=== PATIENT | male | born 1960 | race Caucasian/White ===

== ENCOUNTER 2019-04-16 09:29 | Outpatient (CLI) | payer MEDICARE, MEDICAID, SELFPAY ==
--- NOTE | ~2019-04-16 | CT_ITS ---
EXAMINATION: CT lung screening EXAM DATE: 04/16/2019 09:52 INDICATION: COPD. Personal history of nicotine dependence. TECHNIQUE: Spiral low dose CT of the chest without contrast. Axial, coronal and sagittal images were reviewed. The dose-length product (DLP) for this examination was 144.53 mGy-cm. The exposure was t ailored according to patient size (auto mA exposure control), and iterative reconstruction (ASIR) was used as additional dose reduction technique. Comparison is made to prior examination from 03/17/2018. FINDINGS: Some linear right basilar scarring. Tracheobronchial tree is patent. There is no medias tinal, hilar or axillary lymphadenopathy. There are no pleural or pericardial effusions. There is no pneumothorax. Heart normal in size. There are sternotomy wires, and cardiac/coronary surgical changes. Correlate with prior history. There are cholecystectomy clips. There is hepatic steatosis. Adrenal gland hyperplasia bilaterally. There is mild to moderate thoracic spondylosis without osteob lastic or osteolytic lesions identified. Patient has diffuse idiopathic skeletal hyperostosis (DISH). IMPRESSION: Lung-RADS category 1, negative (<1%chance of malignancy); recommend continued LDCT screen ing in 1 year. > Reviewed, dictated and finalized at location B. OR BUDGET ANALYST IMPRESSION: Lung-RADS category 1, negative (<1%chance of malignancy); recommend continued LDCT screening in 1 year. >
== END 2019-04-16 09:30 | disposition home or self-care (01) ==
PROVIDERS: PCP Internal Medicine; Visit Provider Nurse Practitioner Family
DX: Z12.2 Encounter for screening for malignant neoplasm of respiratory organs (principal); Z87.891 Personal history of nicotine dependence
CPT/HCPCS: G0297

== ENCOUNTER 2019-08-04 10:31 | Outpatient (CLI) | payer MEDICARE, MEDICAID, SELFPAY ==
[2019-08-04 11:15] LABS: Basophils Percent Auto 0.5 % (0.2-1.2); Eosinophils Absolute Auto 0.2 K/mm3 (0-0.3); Eosinophils Percent Auto 2.1 % (0-4.4); Hemoglobin 15.2 g/dL (14.0-18.0); Immature Granulocyte Absolute 0.03 K/mm3 (0.00-0.031); Immature Granulocyte Percent A 0.4 % (0-0.5); Lymphocytes Absolute Auto 2.07 K/mm3 (0.9-3.2); Lymphocytes Percent Auto 27.6 % (18.3-44.2); Mean Corpuscular HGB Conc 31.7 g/dl (32-36); Mean Corpuscular Hemoglobin 29.9 pg (26-34); Mean Corpuscular Volume 94.5 fl (80-100); Mean Platelet Volume 11.2 fl (7.4-10.4); Monocytes Absolute Auto 0.6 K/mm3 (0.1-0.6); Monocytes Percent Auto 8.5 % (2.6-8.5); Neutrophils Absolute Auto 4.6 K/mm3 (1.3-6.7); Neutrophils Percent Auto 60.9 % (45.5-73.1); Platelet Count Result 172 k/mm3 (150-375); Red Blood Count 5.08 M/mm3 (4.6-6.20); Red Cell Distribution Width 12.4 % (11.5-14.5); White Blood Count 7.5 K/mm3 (4.5-10.0)
[2019-08-04 11:35] LABS: Alanine Aminotransferase 28 U/L (4-50); Albumin Level 4.2 g/dL (3.5-5.1); Alkaline Phosphatase 110 U/L (38-126); Aspartate Amino Transferase 32 U/L (17-59); Bilirubin,Total 0.5 mg/dL (0.2-1.3); Blood Urea Nitrogen 13 mg/dL (9-20); Calcium 8.8 mg/dL (8.4-10.2); Carbon Dioxide 24 mmol/L (22-30); Chloride 108 mmol/L (98-107); Cholesterol 152 mg/dL (0-200); Estimated Glomerular Filt Rate > 60; Glucose 122 mg/dL (75-110); HDL Direct 46 mg/dL; Potassium 4.2 mmol/L (3.4-5.0); Sodium 139 mmol/L (137-145); Triglycerides 115 mg/dL (<150)
[2019-08-04 11:45] LABS: LDL Cholesterol Direct 86 mg/dL
[2019-08-04 12:04] LABS: Prostate Specific Antigen 0.7 ng/mL (< OR = 4.0)
== END 2019-08-04 10:32 | disposition home or self-care (01) ==
PROVIDERS: PCP Internal Medicine; Visit Provider Internal Medicine
DX: I48.20 Chronic atrial fibrillation, unspecified (principal); E11.9 Type 2 diabetes mellitus without complications; E78.00 Pure hypercholesterolemia, unspecified; Z12.5 Encounter for screening for malignant neoplasm of prostate
CPT/HCPCS: 36415; 80053; 80061; 83036; 84153; 85025; G0103

== ENCOUNTER 2019-12-31 12:11 | Outpatient (CLI) | payer MEDICARE, MEDICAID, SELFPAY ==
[2019-12-31 12:55] LABS: Hemoglobin A1C 6.7 % (<5.7)
== END 2019-12-31 12:12 | disposition home or self-care (01) ==
PROVIDERS: PCP Internal Medicine; Visit Provider Clinical Nurse Specialist
DX: E11.9 Type 2 diabetes mellitus without complications (principal)
CPT/HCPCS: 36415; 83036

== ENCOUNTER 2020-03-20 14:43 | Outpatient (CLI) | payer MEDICARE, MEDICAID, SELFPAY ==
[2020-03-20 16:14] LABS: Hemoglobin A1C 7.6 % (<5.7)
== END 2020-03-20 14:44 | disposition home or self-care (01) ==
LOC: ANHLAB 14:46
PROVIDERS: PCP Internal Medicine; Visit Provider Clinical Nurse Specialist
DX: E11.69 Type 2 diabetes mellitus with other specified complication (principal)
CPT/HCPCS: 36415; 83036

== ENCOUNTER 2020-04-11 13:50 | Outpatient (CLI) | payer MEDICARE, MEDICAID, SELFPAY ==
--- NOTE | ~2020-04-11 | CT_ITS ---
EXAMINATION:CT lung screening DATE: 04/11/2020 14:10 INDICATION: Personal history of tobacco dependence. Smoker who quit in 2019 with 80 pack year history . TECHNIQUE: Computed tomography (CT) of the chest was performed without intravenous contrast. Automate d exposure control and iterative reconstruction technique were employed. The dose-length product (DLP ) was 198.66 mGy-cm. COMPARISON: Chest CT 04/16/2019 FINDINGS: There is mild emphysema. There is mild subpleural scarring in right lower lobe. There is a new 2.2 cm nodule in left upper lobe. No pleural effusion. The heart size is normal. There are oliva ry artery calcifications. There are changes of coronary artery bypass grafting. A newly enlarged left hilar node measures 2.1 x 1.3 cm. There is diffuse hepatic steatosis. There are changes of cholecyst ectomy. Again seen are masses in the adrenal glands measuring up to 1.7 cm on the left measuring low- attenuation, consistent with adenomas. There is mild bilateral gynecomastia. There are old right rib fractures. There are bridging endplate osteophytes at multiple levels in the spine, consistent with d iffuse idiopathic skeletal hyperostosis (DISH). IMPRESSION: 1. Lung-RADS category 4X: Very suspicious. CT-guided biopsy is recommended. Reviewed, dictated and finalized at location A. DER OPERATOR
== END 2020-04-11 13:51 | disposition home or self-care (01) ==
PROVIDERS: PCP Internal Medicine; Visit Provider Nurse Practitioner Family
DX: Z12.2 Encounter for screening for malignant neoplasm of respiratory organs (principal); Z87.891 Personal history of nicotine dependence
CPT/HCPCS: 71271

== ENCOUNTER 2020-04-28 11:52 | Outpatient (CLI) | payer MEDICARE, MEDICAID, SELFPAY ==
--- NOTE | ~2020-04-28 | PE_ITS ---
EXAMINATION: PET skull to mid thigh DATE: 04/28/2020 13:37 INDICATION: Solitary pulmonary nodule. TECHNIQUE: Blood glucose level was 130 mg/dL. 11.608 mCi of 18-fluorodeoxyglucose (18-FDG) was admini stered i.v. Low dose computed tomography (CT) images were acquired from the base of the brain to the proximal thighs for attenuation correction and anatomic localization. Automated exposure control was employed. Dose-length product (DLP) was 1091 mGy-cm. Positron emission tomography (PET) images were a cquired in the same distribution. COMPARISON: Chest CT 04/11/2020 FINDINGS: Head/neck: There is increased activity in the oropharynx without CT correlate, likely physiologic. Th ere are no pathologically enlarged lymph nodes. There is a mucous retention cyst in left maxillary si nus. There is extensive dental disease. Chest: In the left upper lobe, there is a 2.2 cm nodule with maximum SUV of 5.4. There is a 1.4 x 2.1 cm left hilar node with increased activity. There is mild atelectasis and scarring in the inferior l ungs. No pleural effusion. The heart size is normal. There are coronary artery calcifications. There are changes of coronary bypass grafting. No pericardial effusion. Abdomen/pelvis/proximal thighs: There is diffuse hepatic steatosis. There are changes of cholecystect lita. The spleen and pancreas are normal. There are masses in the adrenal glands measuring up to 1.8 c m on the left without increased activity, consistent with adenomas. The kidneys are normal. There are no dilated loops of bowel. There are no pathologically enlarged lymph nodes. There is no free intrap eritoneal fluid. There is no osseous malignancy. IMPRESSION: 1. 2.2 cm left upper lobe pulmonary nodule with increased activity, consistent with primary bronchoge naye carcinoma. CT-guided biopsy is recommended. 2. Enlarged left hilar lymph node with increased activity, consistent with metastatic disease. Reviewed, dictated and finalized at location A. ECTION CLERK IMPRESSION: 1. 2.2 cm left upper lobe pulmonary nodule with increased activity, consistent with primary bronchogenic carcinoma. CT-guided biopsy is recommended. 2. Enlarged left hilar lymph node with increased activity, consistent with meta static disease.
[2020-04-28 12:15] LABS: Glucose Point of Care 130 (65-105)
== END 2020-04-28 11:53 | disposition home or self-care (01) ==
LOC: ANHIMG 11:58
PROVIDERS: PCP Internal Medicine; Visit Provider Nurse Practitioner Family
DX: R91.1 Solitary pulmonary nodule (principal); R59.0 Localized enlarged lymph nodes; E11.9 Type 2 diabetes mellitus without complications
CPT/HCPCS: 78815; 82948; A9552

== ENCOUNTER → 2020-05-13 02:38 | Outpatient (CLI) | payer MEDICARE, MEDICAID, SELFPAY ==
[2020-05-13 20:23] LABS: SARS-CoV-2 RNA PCR Negative
== END ==
PROVIDERS: PCP Internal Medicine; Visit Provider Nurse Practitioner Family
DX: Z01.812 Encounter for preprocedural laboratory examination (principal); Z20.822 Contact with and (suspected) exposure to COVID-19
CPT/HCPCS: C9803; U0003; U0005

== ENCOUNTER 2020-05-16 09:02 | Outpatient (CLI) | payer MEDICARE, MEDICAID, SELFPAY ==
[2020-05-03 14:59] VITALS: BMI 30.7
[2020-05-16] VITALS (9 sets, daily range): BP systolic 111–165; BP diastolic 69–100; PULSE 68–78; RESP 16–18; O2SAT 94–100
--- NOTE | ~2020-05-16 | XR_ITS ---
EXAMINATION: XR chest 1V DATE: 05/16/2020 11:11 INDICATION: Status post left lung biopsy TECHNIQUE: frontal view of the chest was obtained. COMPARISON: Chest CT dated 04/11/2020 FINDINGS: Nodular opacity in the left midlung zone corresponding to the biopsied nodule of concern. Elevation o f the lateral right hemidiaphragm and chronic scarring with blunting at the right costophrenic angle. No other airspace opacities, pulmonary edema, pleural effusion or pneumothorax. The cardiomediastina l silhouette is normal. Median sternotomy wires and mediastinal surgical clips are seen, likely from prior coronary artery bypass grafting. IMPRESSION: 1. No evident pneumothorax or pleural effusion post cutaneous biopsy of a left upper lobe nodule whic h is concerning for malignancy. Reviewed, dictated and finalized at location A. IMPRESSION: 1. No evident pneumothorax or pleural effusion post cutaneous biopsy of a left upper lobe nodule which is concerning for malignancy.
--- NOTE | ~2020-05-16 | XR_ITS ---
EXAMINATION: XR chest 1V portable DATE: 05/16/2020 14:15 INDICATION: Status post percutaneous biopsy of a left upper lobe nodule. TECHNIQUE: frontal view of the chest was obtained. COMPARISON: Chest radiograph dated 05/16/2020 at 12:09 PM FINDINGS: Nodular opacity in the left midlung zone. Chronic pleural parenchymal scarring at the right costophre naye angle with elevation of the lateral right hemidiaphragm. Previously seen small left apical pneumo thorax is no longer visualized. No pleural effusion. The cardiomediastinal silhouette is normal. Medi an sternotomy wires and mediastinal surgical clips are seen, likely from prior coronary artery bypass grafting. IMPRESSION: 1. Prior tiny left apical pneumothorax no longer visualized. 2. Left upper lobe nodule concerning for primary bronchogenic carcinoma. Reviewed, dictated and finalized at location A.
--- NOTE | ~2020-05-16 | XR_ITS ---
EXAMINATION: XR chest 1V portable DATE: 05/16/2020 12:14 INDICATION: Status post left lung biopsy. TECHNIQUE: frontal view of the chest was obtained. COMPARISON: Chest radiograph and CT dated 05/16/2020 FINDINGS: There is a very small left apical pneumothorax which was present on the CT images following the biops y but was indiscernible on the intervening radiographs. Unchanged nodular opacity in the left midlung zone. Mild elevation of the lateral right hemidiaphragm with poor parenchymal scarring at the right costophrenic angle. No pulmonary edema, pleural effusion or right pneumothorax. The cardiomediastinal silhouette is normal. Median sternotomy wires and mediastinal surgical clips are seen, likely from p rior coronary artery bypass grafting. IMPRESSION: 1. Very small left apical pneumothorax post percutaneous biopsy of a left upper lobe nodule which is concerning for malignancy. Reviewed, dictated and finalized at location A.
--- NOTE | ~2020-05-16 | CT_ITS ---
EXAMINATION: CT biopsy lung w/imaging DATE: 05/16/2020 11:18 INDICATION: Left upper lobe nodule TECHNIQUE: The procedure including the risks and benefits was discussed with the patient. Risks discu ssed included infection, approximately 1/20 risk of symptomatic hemorrhage beyond mild hemoptysis, ap proximately 1/3 risk of pneumothorax, and approximately 1/10 risk of pneumothorax severe enough to wa rrant chest tube placement. The patient understood the risks and agreed to proceed. The patient was p laced supine. The skin overlying the pectoral region was prepped and draped in sterile fashion. Ane sthetic was administered with 1% lidocaine subcutaneously. A 19 gauge outer needle was advanced unde r CT guidance to the lesion of interest. A 20 gauge core biopsy needle was then used to obtain 4 core biopsy specimens. The needle was removed and the entry site was cleaned and dressed. There were no immediate complications. The dose-length product was 139.53 mGy-cm. FINDINGS: CT images demonstrate the outer needle tip adjacent to 3.2 x 1.1 cm nodule in the anterior segment of the left upper lobe. Very small anterior left pneumothorax. IMPRESSION: 1. Successful CT-guided biopsy of a 3.2 x 1.1 cm left upper lobe nodule. Reviewed, dictated and finalized at location A.
[2020-05-16 09:30] LABS: Mean Platelet Volume 11.3 fl (7.4-10.4); Platelet Count Result 183 k/mm3 (150-375)
[2020-05-16 09:45] LABS: INR 0.9; Prothrombin Time 12.5 Seconds (11.1-14.7)
--- NOTE | 2020-05-16 11:28 | SUR.PHASEII ---
DR. EPPERSON CALLED; LEFT MESSAGE RE: PT'S LEFT UPPER CHEST PUNCTURE PAIN 09/26.
[2020-05-16 11:37] LABS: Glucose Point of Care 141 (65-105)
[2020-05-16] MEDS: ACETAMINOPHEN 325 MG TABLET 650 MG PO (11:47)
--- NOTE | 2020-05-16 12:08 | SUR.PHASEII ---
PORTABLE XRAY DONE.
--- NOTE | 2020-05-16 14:41 | SUR.PHASEII ---
DR. EPPERSON HERE TALKING TO PT.
== END 2020-05-16 14:55 | disposition home or self-care (01) ==
PROVIDERS: Radiology Diagnostic Radiology; PCP Internal Medicine; Visit Provider Nurse Practitioner Family
DX: R91.1 Solitary pulmonary nodule (principal); Z51.81 Encounter for therapeutic drug level monitoring; Z79.899 Other long term (current) drug therapy
CPT/HCPCS: 32408; 36415; 71045; 82948; 85049; 85610; 88305; 88342; A9270

== ENCOUNTER 2020-05-25 08:05 | Outpatient (CLI) | payer MEDICARE, MEDICAID, SELFPAY ==
--- NOTE | 2020-05-25 14:17 | WPDSIXMINUTE ---
Six Minute Walk This is a 6 minutes walk test. The test was performed and interpreted in accordance with the 2014 ERS/ATS task force guidelines. Findings: The patient's resting room air oxygen saturation measured by pulse oximetry was 93% and her heart rate was 69 bpm. Patient ambulated for 274 meters and oxygen saturation remained 92 to 96%. Heart rate at the end of the study was 86 bpm. There are no prior studies for comparison. Six Minute Walk Procedure Procedure Performed Pulmonary Stress Test (6 min walk)
== END 2020-05-25 08:06 | disposition home or self-care (01) ==
PROVIDERS: PCP Internal Medicine; Visit Provider Nurse Practitioner Family
DX: R06.02 Shortness of breath (principal)
CPT/HCPCS: 94618

== ENCOUNTER 2020-05-25 16:12 | Outpatient (CLI) | payer MEDICARE, MEDICAID, SELFPAY ==
[2020-05-25 16:39] LABS: Basophils Absolute Auto 0.1 K/mm3 (0.0-0.1); Basophils Percent Auto 0.9 % (0.2-1.2); Eosinophils Absolute Auto 0.1 K/mm3 (0-0.3); Eosinophils Percent Auto 1.8 % (0-4.4); Hematocrit 49.3 % (42.0-52.0); Hemoglobin 15.9 g/dL (14.0-18.0); Immature Granulocyte Absolute 0.06 K/mm3 (0.00-0.031); Immature Granulocyte Percent A 0.8 % (0-0.5); Lymphocytes Absolute Auto 2.16 K/mm3 (0.9-3.2); Lymphocytes Percent Auto 27.9 % (18.3-44.2); Mean Corpuscular HGB Conc 32.3 g/dl (32-36); Mean Corpuscular Hemoglobin 30.1 pg (26-34); Mean Corpuscular Volume 93.2 fl (80-100); Mean Platelet Volume 11.6 fl (7.4-10.4); Monocytes Absolute Auto 0.7 K/mm3 (0.1-0.6); Monocytes Percent Auto 8.9 % (2.6-8.5); Neutrophils Absolute Auto 4.6 K/mm3 (1.3-6.7); Neutrophils Percent Auto 59.7 % (45.5-73.1); Platelet Count Result 201 k/mm3 (150-375); Red Blood Count 5.29 M/mm3 (4.6-6.20); Red Cell Distribution Width 12.4 % (11.5-14.5); White Blood Count 7.7 K/mm3 (4.5-10.0)
[2020-05-25 16:57] LABS: Potassium 4.3 mmol/L (3.4-5.0)
[2020-05-25 17:00] LABS: Alanine Aminotransferase 88 U/L (4-50); Albumin Level 4.6 g/dL (3.5-5.1); Alkaline Phosphatase 148 U/L (38-126); Anion Gap 7 mmol/L (8-16); Aspartate Amino Transferase 99 U/L (17-59); Bilirubin,Total 0.2 mg/dL (0.2-1.3); Blood Urea Nitrogen 19 mg/dL (9-20); Calcium 9.5 mg/dL (8.4-10.2); Carbon Dioxide 31 mmol/L (22-30); Chloride 102 mmol/L (98-107); Estimated Glomerular Filt Rate > 60; Glucose 279 mg/dL (75-110); Sodium 140 mmol/L (137-145)
== END 2020-05-25 16:13 | disposition home or self-care (01) ==
PROVIDERS: PCP Internal Medicine; Visit Provider Internal Medicine Hematology & Oncology
DX: C34.90 Malignant neoplasm of unspecified part of unspecified bronchus or lung (principal)
CPT/HCPCS: 36415; 80053; 85025; 94618

== ENCOUNTER → 2020-05-29 02:50 | Outpatient (CLI) | payer MEDICARE, MEDICAID, SELFPAY ==
[2020-05-29 19:42] LABS: SARS-CoV-2 RNA PCR Negative
== END ==
PROVIDERS: PCP Internal Medicine; Visit Provider Surgery
DX: Z01.812 Encounter for preprocedural laboratory examination (principal); Z20.822 Contact with and (suspected) exposure to COVID-19
CPT/HCPCS: C9803; U0003; U0005

== ENCOUNTER 2020-06-01 00:48 | Day surgery (SDC) | payer MEDICARE, MEDICAID, SELFPAY ==
[2020-05-26 15:28] VITALS: BMI 30.7
--- NOTE | ~2020-06-01 | XR_ITS ---
EXAMINATION: XR chest port-a-cath/central INDICATION: Port-A-Cath insertion TECHNIQUE: Portable AP chest is obtained at six 0224 hours COMPARISON: 05/16/2020 FINDINGS: A right subclavian Port-A-Cath ends with its tip at the proximal superior vena cava. There is no pneumothorax. Left perihilar opacity is consistent with known lung cancer. The lungs are free o f acute opacities. There is no pleural effusion. The heart size is normal. Median sternotomy wires an d mediastinal surgical clips are seen, likely from prior coronary artery bypass grafting. IMPRESSION: 1. Right subclavian Port-A-Cath ending in the proximal superior vena cava. No pneumothorax. 2. Right perihilar nodule, consistent with known lung cancer. Reviewed, dictated and finalized at location B. IMPRESSION: 1. Right subclavian Port-A-Cath ending in the proximal superior vena cava. No p neumothorax. 2. Right perihilar nodule, consistent with known lung cancer.
--- NOTE | ~2020-06-01 | XR_ITS ---
EXAMINATION: XR fl guide central line place INDICATION: Port-A-Cath insertion TECHNIQUE: Two intraoperative fluoroscopic images are submitted for review. Total fluoroscopic time w as 15.8 seconds. COMPARISON: None available FINDINGS: Fluoroscopic images demonstrate a right subclavian Port-A-Cath ending with its tip in the p roximal superior vena cava. Median sternotomy wires and mediastinal surgical clips are seen, likely f rom prior coronary artery bypass grafting. IMPRESSION: 1. Right subclavian Port-A-Cath with its tip in the proximal superior vena cava. Please refer to proc edure note for full details. Reviewed, dictated and finalized at location B. IMPRESSION: 1. Right subclavian Port-A-Cath with its tip in the proximal superior vena cava . Please refer to procedure note for full details.
[2020-06-01 12:29] VITALS: BP 128/89; PULSE 88; RESP 16; TEMP 36.3; O2SAT 98
--- NOTE | 2020-06-01 13:14 | SUR.PREOP ---
dr patel stated no need for ptt draw with inr 0.9.
[2020-06-01] MEDS: LACTATED RINGERS 1,000 ML 30 ML IV CONT (13:47)
[2020-06-01] MEDS: KETOROLAC 15 MG/ML VIAL (*BKC) IV PUSH (13:49)
[2020-06-01 13:56] LABS: Glucose Point of Care 97 (65-105)
--- NOTE | 2020-06-01 14:18 | P.PNAN_ITS ---
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 Patient Data Age: 60 Gender: M Height: 5 ft 11 in Weight: 97.75 kg Last Vital Signs Temp 36.3 C L 06/01/20 12:29 Pulse 88 06/01/20 12:29 Resp 16 06/01/20 12:29 BP 128/89 06/01/20 12:29 Pulse Ox 98 06/01/20 12:29 Allergies Allergy/AdvReac Type Severity Reaction Status Date / Time ezetimibe Allergy Mild Arm pain Verified 06/01/20 13:06 lovastatin Allergy Mild Arm pain Verified 06/01/20 13:06 metformin Allergy Mild Arm pain Verified 06/01/20 13:06 simvastatin Allergy Mild Arm Pain Verified 06/01/20 13:06 Home Medications Medication Instructions Recorded Confirmed Type albuterol sulfate 2.5 mg INHALATION PRN ml 02/02/19 06/01/20 History blood sugar diagnostic #10 each 02/02/19 05/31/20 History furosemide 40 mg tablet 40 mg PO DAILY tablet 02/02/19 06/01/20 History latanoprost 0.005 % eye drops 1 drop EACH EYE QPM 02/02/19 06/01/20 History metoprolol tartrate 25 mg tablet 12.5 mg PO DAILY tablet 02/02/19 06/01/20 History potassium chloride 20 mEq 40 meq PO DAILY 02/02/19 06/01/20 History tablet,extended release aspirin 325 mg tablet 81 mg PO DAILY 04/09/19 06/01/20 History glimepiride 4 mg tablet 4 mg PO DAILY #90 tablet 09/23/19 06/01/20 Rx cetirizine 10 mg tablet 10 mg PO HS 09/28/19 06/01/20 History melatonin 10 mg capsule 10 mg PO HS cap 09/28/19 06/01/20 History bupropion HCl 150 mg tablet,12 hr 150 mg PO BID #180 tablet 01/04/20 06/01/20 Rx sustained-release Embrace PRO Glucose meter #1 ea NS 01/18/20 05/31/20 Rx sitagliptin 100 mg tablet 100 mg PO DAILY #90 tablet 03/13/20 06/01/20 Rx rosuvastatin 5 mg tablet 10 mg PO HS tablet 03/30/20 06/01/20 History famotidine 20 mg tablet 20 mg PO BID #60 tablet 04/13/20 06/01/20 Rx fluticasone propionate 50 2 spray NASAL DAILY #19.8 ml 04/20/20 06/01/20 Rx mcg/actuation nasal spray,suspension brimonidine 1 drp EACH EYE BID 05/26/20 06/01/20 History budesonide-formoterol [Symbicort] 2 puff INHALATION BID 05/26/20 06/01/20 History albuterol sulfate [Ventolin HFA] 2 puff INHALATION PRN PRN 06/01/20 06/01/20 History Laboratory Tests 06/01/20 13:53 POC Capillary Glucose 97 mg/dl mg/dl (65-105) Patient hx anesthesia problems: none Family hx anesthesia problems: none PMFSH Past Medical History Medical History CAD (coronary artery disease) Chicken pox Chronic pain COPD (chronic obstructive pulmonary disease) COPD exacerbation Emphysema lung GERD (gastroesophageal reflux disease) Glaucoma Hyperlipidemia Hypertension Migraine Nicotine dependence, other tobacco product, uncomplicated Obesity Osteoarthritis Pneumonia Tobacco abuse Type 2 diabetes mellitus Upper respiratory tract infection Surgical History Surgical History H/O heart artery stent
--- NOTE | 2020-06-01 14:19 | PM.IMHP ---
H&P: HPI History of Present Illness Date/Time: 06/01/20 14:19 Pt is a 60 y/o M c multiple med issues including CAD s/p CABG presenting c recently dx'd left sided lung cancer. Pt is going to undergo chemoradiation. Pt presents for VAD placement. Pt denies any known previous central venous catheterization. Chief Complaint: L lung cancer Review of Systems Review of Systems: All systems reviewed & are unremarkable except as noted in HPI and below PMFSH Past Medical History Medical History CAD (coronary artery disease) Chicken pox Chronic pain COPD (chronic obstructive pulmonary disease) COPD exacerbation Emphysema lung GERD (gastroesophageal reflux disease) Glaucoma Hyperlipidemia Hypertension Migraine Nicotine dependence, other tobacco product, uncomplicated Obesity Osteoarthritis Pneumonia Tobacco abuse Type 2 diabetes mellitus Upper respiratory tract infection Surgical History Surgical History H/O heart artery stent 12/2012 History of open heart surgery 4 bypass heart surgery 10/26/2018 Family History Family History Mother Family history of cardiovascular disease, Onset Age: 71 Sibling Carcinoma of colon H/O heart bypass surgery Father Family history of lung cancer Social History Social History Smoking packs per day: 1.5 Smoking cigarettes per day: 30.0 Years smoked: 45 Smoking pack-years: 67.50 Smoking status: Former smoker Tobacco type: cigarettes Second hand tobacco smoke exposure: No Smoking end date: 04/18/19 Alcohol intake: never Substance use: never Substance use type: does not use Spiritual care concerns: No Meds Home Medications and Allergies Home Medications Medication Instructions Recorded Confirmed Type albuterol sulfate 2.5 mg INHALATION PRN ml 02/02/19 06/01/20 History blood sugar diagnostic #10 each 02/02/19 05/31/20 History furosemide 40 mg tablet 40 mg PO DAILY tablet 02/02/19 06/01/20 History latanoprost 0.005 % eye drops 1 drop EACH EYE QPM 02/02/19 06/01/20 History metoprolol tartrate 25 mg tablet 12.5 mg PO DAILY tablet 02/02/19 06/01/20 History potassium chloride 20 mEq 40 meq PO DAILY 02/02/19 06/01/20 History tablet,extended release aspirin 325 mg tablet 81 mg PO DAILY 04/09/19 06/01/20 History glimepiride 4 mg tablet 4 mg PO DAILY #90 tablet 09/23/19 06/01/20 Rx cetirizine 10 mg tablet 10 mg PO HS 09/28/19 06/01/20 History melatonin 10 mg capsule 10 mg PO HS cap 09/28/19 06/01/20 History bupropion HCl 150 mg tablet,12 hr 150 mg PO BID #180 tablet 01/04/20 06/01/20 Rx sustained-release Embrace PRO Glucose meter #1 ea NS 01/18/20 05/31/20 Rx sitagliptin 100 mg tablet 100 mg PO DAILY #90 tablet 03/13/20 06/01/20 Rx rosuvastatin 5 mg tablet 10 mg PO HS tablet 03/30/20 06/01/20 History famotidine 20 mg tablet 20 mg PO BID #60 tablet 04/13/20 06/01/20 Rx fluticasone propionate 50 2 spray NASAL DAILY #19.8 ml 04/20/20 06/01/20 Rx mcg/actuation nasal spray,suspension brimonidine 1 drp EACH EYE BID 05/26/20 06/01/20 History budesonide-formoterol [Symbicort] 2 puff INHALATION BID 05/26/20 06/01/20 History albuterol sulfate [Ventolin HFA] 2 puff INHALATION PRN PRN 06/01/20 06/01/20 History Allergies Allergy/AdvReac Type Severity Reaction Status Date / Time ezetimibe Allergy Mild Arm pain Verified 06/01/20 13:06 lovastatin Allergy Mild Arm pain Verified 06/01/20 13:06 metformin Allergy Mild Arm pain Verified 06/01/20 13:06 simvastatin Allergy Mild Arm Pain Verified 06/01/20 13:06 Vital Signs Vital Signs - 24 hr 06/01/20 12:29 Temperature 36.3 C L Pulse Rate 88 Respiratory Rate 16 Blood Pressure 128/89 Pulse Oximetry 98 Exam Const: General: cooperative, no acute distress and ill appearin
--- NOTE | 2020-06-01 14:23 | WPDHPUPDATE1 ---
History and Physical Update Update Date/Time: 06/01/20 14:23 History and Physical has been reviewed, including an updated exam of the patient. There are NO changes in the patient's condition. Risks, benefits, and alternatives have been discussed and questions answered. Patient agrees to proceed with procedure.
--- NOTE | 2020-06-01 14:54 | SUR.PREOP ---
pt informed of delay in procedure when arrived.
[2020-06-01] MEDS: ceFAZolin 2 GM/D5W 50 ML 2 GM/50 ML BAG IVPB (15:30)
[2020-06-01] MEDS: HEPARIN SODIUM 5,000 UNITS/ML VIAL 5000 UNITS IRRIGATION (15:46)
[2020-06-01] MEDS: BUPIVACAINE/EPINEPHRINE 0.5% 30 ML VIAL 10 ML INFILTRATE (15:46)
[2020-06-01 16:15] VITALS: BP 135/82; PULSE 81; RESP 16; O2SAT 97
--- NOTE | 2020-06-01 16:16 | P.OP_ITS ---
Procedure Note - Detailed Date of procedure: 06/01/20 Pre-op diagnosis: small cell lung CA Post-op diagnosis: same Procedure performed: placement of right subclavian venous access device under fluroscopic guidance Description of procedure: Patient was brought into the operating room and placed in the supine position. After adequate induction of mac anesthesia, the patient was prepped and draped in normal sterile fashion. Time-out was then done to verify the patient's identity, as well as the procedure being performed. I began by making a small incision in the right chest, I then gained access into the right subclavian vein with an 18 gauge needle. I then placed the guidewire into the vein and confirmed placement via fluoroscopic guidance. I then locally anesthetized the area in the right chest. I then enlarged the incision around the guidewire including making a subcutaneous pocket inferiorly to allow placement of the port itself. I then placed a dilating sheath over the guidewire into the right subclavian vein via sterile Seldinger technique. This was once again done and confirmed via fluoroscopic guidance. I then removed the dilator and the guidewire, now just leaving the sheath in the vein. I then fed the previously flushed catheter into the right subclavian vein under fluoroscopic guidance. At approximately 16 cm, the catheter was noted to be near the atrial caval junction. I then peeled away the sheath, now just leaving the catheter in the vein. I then was able to easily draw and flush from the catheter. The catheter was cut to fit and attached to the port itself. The port was placed into the previously made subcutaneous pocket and sutured in with 0 Ethibond suture. Final fluoroscopic view showed the termination of the catheter at the atrial caval junction with a nice smooth curvature back to the port itself. I was able to gain access to the port with a Allen needle and was able to easily draw and flush from the port. I then flushed 4 cc of a final heparin flush into the port. The incision was closed with 3 0 Vicryl suture in the subcutaneous tissue and the skin was closed with 4 O Monocryl subcuticular suture. Dermabond was then placed on wound. The patient tolerated the proced ure well and will be sent to the recovery room in stable condition. Anesthesia: MAC and local Surgeon: Ana Morrison MD Estimated blood loss (mL): 25 Drains: No Packing: No Pathology: none sent Complications: No immediate complications Condition: stable Disposition: PACU Findings: placement of R SCV VAD via 1st stick
[2020-06-01 16:45] VITALS: BP 142/83; PULSE 73; RESP 16; O2SAT 99
[2020-06-01 17:15] VITALS: BP 148/84; PULSE 77; RESP 16
== END 2020-06-01 17:30 | disposition home or self-care (01) ==
PROVIDERS: PCP Internal Medicine; Visit Provider Surgery
PROC: (CPT 36561; principal; 2020-06-01 14:30)
DX: C34.12 Malignant neoplasm of upper lobe, left bronchus or lung (principal); I25.10 Atherosclerotic heart disease of native coronary artery without angina pectoris; J44.9 Chronic obstructive pulmonary disease, unspecified; K21.9 Gastro-esophageal reflux disease without esophagitis; I10 Essential (primary) hypertension; H40.9 Unspecified glaucoma; E11.9 Type 2 diabetes mellitus without complications; M19.90 Unspecified osteoarthritis, unspecified site; Z95.1 Presence of aortocoronary bypass graft; Z95.5 Presence of coronary angioplasty implant and graft; Z87.891 Personal history of nicotine dependence; Z79.51 Long term (current) use of inhaled steroids; Z79.82 Long term (current) use of aspirin; Z79.84 Long term (current) use of oral hypoglycemic drugs
CPT/HCPCS: 36561; 70553; 77001; 82948; A9577; C1788; C9803; J0690; J1644; J1885; J2250; J2704; J3010; J7030; J7120; U0003; U0005

== ENCOUNTER 2020-06-01 06:33 | Outpatient (CLI) | payer MEDICARE, MEDICAID, SELFPAY ==
--- NOTE | ~2020-06-01 | MR_ITS ---
EXAMINATION: MR brain/brain stem wo/w con DATE: 06/01/2020 07:56 INDICATION: Small cell lung cancer. TECHNIQUE: Magnetic resonance imaging (MRI) of the brain and brainstem was performed without and with 20 mL MultiHance intravenous contrast. Sequences included sagittal and axial T1-weighted FSE, axial diffusion-weighted FS EPI, axial T2*-weighted GRE, axial T2-weighted FLAIR Propeller, and axial T2-we ighted Propeller. Postcontrast sequences included axial, sagittal, and coronal T1-weighted FSE. Appar ent diffusion coefficient (ADC) maps were created. COMPARISON: None. FINDINGS: There are scattered areas of nonspecific increased T2-weighted signal intensity in the cere bral white matter. There is a developmental venous anomaly in left parietal lobe. There is no intracr anial hemorrhage, acute infarction, or abnormal intracranial mass lesion. The ventricles are normal i n size. There is a mucous retention cyst in left maxillary sinus. The orbits are normal. The mastoid air cells are normal. IMPRESSION: 1. No evidence of metastatic disease. 2. Mild nonspecific cerebral white matter disease, which likely represents chronic small vessel ische ezio disease. Reviewed, dictated and finalized at location A. IMPRESSION: 1. No evidence of metastatic disease. 2. Mild nonspecific cerebral white matter disease, which likely represents melter operator naye small vessel ischemic disease.
== END 2020-06-01 06:34 | disposition home or self-care (01) ==
PROVIDERS: PCP Internal Medicine; Visit Provider Internal Medicine Hematology & Oncology
DX: C34.90 Malignant neoplasm of unspecified part of unspecified bronchus or lung (principal); R93.0 Abnormal findings on diagnostic imaging of skull and head, not elsewhere classified
CPT/HCPCS: 70553; A9577

== ENCOUNTER 2020-06-22 16:12 | Outpatient (CLI) | payer MEDICARE, MEDICAID, SELFPAY ==
[2020-06-22 16:50] LABS: Potassium 4.5 mmol/L (3.4-5.0)
[2020-06-22 16:58] LABS: Anion Gap 5 mmol/L (8-16); Blood Urea Nitrogen 23 mg/dL (9-20); Calcium 9.5 mg/dL (8.4-10.2); Carbon Dioxide 32 mmol/L (22-30); Chloride 99 mmol/L (98-107); Cholesterol 174 mg/dL (0-200); Estimated Glomerular Filt Rate > 60; Glucose 245 mg/dL (75-110); HDL Direct 55 mg/dL; Sodium 136 mmol/L (137-145); Triglycerides 442 mg/dL (<150)
[2020-06-22 17:01] LABS: LDL Cholesterol Direct 84 mg/dL
[2020-06-22 18:15] LABS: Hemoglobin A1C 8.9 % (<5.7)
== END 2020-06-22 16:13 | disposition home or self-care (01) ==
LOC: ANHLAB 16:15
PROVIDERS: PCP Internal Medicine; Visit Provider Clinical Nurse Specialist
DX: E78.5 Hyperlipidemia, unspecified (principal); E11.69 Type 2 diabetes mellitus with other specified complication
CPT/HCPCS: 36415; 80048; 80061; 83036

== ENCOUNTER 2020-09-04 09:59 | Outpatient (CLI) | payer MEDICARE, MEDICAID, SELFPAY ==
--- NOTE | ~2020-09-04 | CT_ITS ---
EXAMINATION: CT diagnostic chest w con DATE: 09/04/2020 10:30 INDICATION: Malignant neoplasm of left upper lobe TECHNIQUE: Computed tomography (CT) of the chest was performed with 75 cc Omnipaque 350 intravenous c ontrast. Automated exposure control and iterative reconstruction technique were employed. Exam dose: 986.74 mGy-cm total exam DLP. COMPARISON: 06/01/2020 portable AP chest 05/16/2020 CT guided percutaneous needle biopsy of the left lung FINDINGS: No pulmonary mass lesion is currently evident. No pulmonary infiltrate or consolidation. Th ere is discoid scarring in the posterolateral right lower lung. Normal heart size. No thoracic aortic aneurysm or dissection. No pericardial or pleural effusion. No hilar or mediastinal mass lesion or lymphadenopathy. Posterior old right eighth and ninth rib fracture deformities. Status post cholecystectomy. Hepatic steatosis. Bilateral adrenal hypertrophy. Diffuse idiopathic skeletal hyperostosis of the thoracic spine. IMPRESSION: No suspicious lung mass or pulmonary infiltrate or consolidation No hilar or mediastinal mass lesion or lymphadenopathy Reviewed, dictated and finalized at [facility]. Reviewed, dictated and finalized at location A.
== END 2020-09-04 10:00 | disposition home or self-care (01) ==
LOC: ANHIMG 10:02
PROVIDERS: PCP Internal Medicine; Visit Provider Radiology Radiation Oncology
DX: C34.12 Malignant neoplasm of upper lobe, left bronchus or lung (principal)
CPT/HCPCS: 71260; Q9967

== ENCOUNTER 2020-09-23 17:41 | Emergency (ER) | payer MEDICARE, MEDICAID, SELFPAY ==
--- NOTE | ~2020-09-23 | XR_ITS ---
EXAMINATION: XR hip LT min 2V DATE: 09/23/2020 18:08 INDICATION: Left hip pain. Fall. TECHNIQUE: 3 views of left hip were obtained. COMPARISON: None. FINDINGS: Bone alignment is normal. No fracture. There is mild left hip osteoarthritis. IMPRESSION: 1. Mild left hip osteoarthritis. Reviewed, dictated and finalized at location A.
[2020-09-23 17:53] VITALS: BP 130/80; PULSE 95; RESP 18; TEMP 36.7; O2SAT 99
--- NOTE | 2020-09-23 18:36 | ED.LOWEXIN ---
HPI - Extremity Injury (Lower) General Chief Complaint: Extremity Injury, Lower Stated Complaint: Leg Pain Related Data Home Medications Medication Instructions Recorded Confirmed albuterol sulfate 2.5 mg INHALATION PRN ml 02/02/19 09/13/20 blood sugar diagnostic #10 each 02/02/19 09/13/20 furosemide 40 mg tablet 40 mg PO DAILY tablet 02/02/19 09/13/20 metoprolol tartrate 25 mg tablet 12.5 mg PO DAILY tablet 02/02/19 09/13/20 potassium chloride 20 mEq 40 meq PO DAILY 02/02/19 09/13/20 tablet,extended release cetirizine 10 mg tablet 10 mg PO HS 09/28/19 09/13/20 melatonin 10 mg capsule 10 mg PO HS cap 09/28/19 09/13/20 rosuvastatin 5 mg tablet 10 mg PO HS tablet 03/30/20 09/13/20 Allergies Allergy/AdvReac Type Severity Reaction Status Date / Time ezetimibe Allergy Mild Arm pain Verified 09/23/20 17:58 lovastatin Allergy Mild Arm pain Verified 09/23/20 17:58 metformin Allergy Mild Arm pain Verified 09/23/20 17:58 simvastatin Allergy Mild Arm Pain Verified 09/23/20 17:58 [facility] Past Medical History Medical History CAD (coronary artery disease) Chicken pox Chronic pain COPD (chronic obstructive pulmonary disease) COPD exacerbation Emphysema lung GERD (gastroesophageal reflux disease) Glaucoma Hyperlipidemia Hypertension Migraine Nicotine dependence, other tobacco product, uncomplicated Obesity Osteoarthritis Pneumonia Tobacco abuse Type 2 diabetes mellitus Upper respiratory tract infection Surgical History Surgical History H/O heart artery stent 12/2012 History of open heart surgery 4 bypass heart surgery 10/26/2018 Family History Family History Mother Family history of cardiovascular disease, Onset Age: 71 Sibling Carcinoma of colon H/O heart bypass surgery Father Family history of lung cancer Social History Social History Smoking packs per day: 1.5 Smoking cigarettes per day: 30.0 Years smoked: 45 Smoking pack-years: 67.50 Smoking status: Former smoker Tobacco type: cigarettes Second hand tobacco smoke exposure: No Smoking end date: 06/14/19 Alcohol intake: never Substance use: never Substance use type: does not use Gender identity (if verbalized by the patient): Male Spiritual care concerns: No Course Vital Signs Vital signs: Vital Signs Temperature 98.0 F 09/23/20 17:53 Pulse Rate 95 09/23/20 17:53 Respiratory Rate 18 09/23/20 17:53 Blood Pressure 130/80 09/23/20 17:53 Pulse Oximetry 99 09/23/20 17:53 Temperature 98.0 F 09/23/20 17:53 Pulse Rate 95 09/23/20 17:53 Respiratory Rate 18 09/23/20 17:53 Blood Pressure 130/80 09/23/20 17:53 Pulse Oximetry 99 09/23/20 17:53 Discharge Plan Discharge Clinical Impression: Injury of hip, left Qualifiers: Encounter type: initial encounter Qualified Code(s): S79.912A - Unspecified injury of left hip, initial encounter Patient Disposition: Home, Self-Care Condition: Stable Instructions: Contusion in Adults (ED) Additional Instructions: Your x-ray is negative for fracture today. Rest. Take Tylenol or ibuprofen for pain. Apply ice or heat. Get up from a sitting position slowly. Follow-up with your PCP with any concerns. Your blood pressure was elevated above 120/80 today at Urgent Care. This puts you above the threshold for follow up. Please schedule a followup visit with your personal physician as soon as possible, for further evaluation and treatment. Even blood pressure exceeding 120/80 may indicate pre-hypertension. Patient Language: Portuguese Prescriptions: No Action hydrocodone-acetaminophen 7.5-325 mg/15 mL Solution 10 - 15 ml PO Q6H PRN (Reason: Pain) Qty: 300 RF: 0 albuterol sulfate 2.5 mg /3 mL (0.083
== END 2020-09-23 18:40 | disposition home or self-care (01) ==
PROVIDERS: Emergency Provider Nurse Practitioner; PCP Internal Medicine
DX: S79.912A Unspecified injury of left hip, initial encounter (principal); W19.XXXA Unspecified fall, initial encounter; Z87.891 Personal history of nicotine dependence; I25.10 Atherosclerotic heart disease of native coronary artery without angina pectoris; J44.9 Chronic obstructive pulmonary disease, unspecified; K21.9 Gastro-esophageal reflux disease without esophagitis; H40.9 Unspecified glaucoma; E78.5 Hyperlipidemia, unspecified; I10 Essential (primary) hypertension; M19.90 Unspecified osteoarthritis, unspecified site; E11.9 Type 2 diabetes mellitus without complications; Z95.5 Presence of coronary angioplasty implant and graft
CPT/HCPCS: 73502; 99213; G0463

== ENCOUNTER 2020-10-03 10:21 | Outpatient (CLI) | payer MEDICARE, MEDICAID, SELFPAY ==
[2020-10-03 11:24] LABS: Anion Gap 8 mmol/L (8-16); Blood Urea Nitrogen 19 mg/dL (9-20); Calcium 9.4 mg/dL (8.4-10.2); Carbon Dioxide 29 mmol/L (22-30); Chloride 99 mmol/L (98-107); Estimated Glomerular Filt Rate > 60; Glucose 203 mg/dL (65-110); Potassium 4.9 mmol/L (3.4-5.0); Sodium 136 mmol/L (137-145)
[2020-10-03 13:31] LABS: Hemoglobin A1C 7.3 % (<5.7)
== END 2020-10-03 10:22 | disposition home or self-care (01) ==
LOC: ANHLAB 10:23
PROVIDERS: PCP Internal Medicine; Visit Provider Clinical Nurse Specialist
DX: E11.69 Type 2 diabetes mellitus with other specified complication (principal)
CPT/HCPCS: 36415; 80048; 83036

== ENCOUNTER 2020-11-22 08:56 | Outpatient (CLI) | payer MEDICARE, MEDICAID, SELFPAY ==
--- NOTE | ~2020-11-22 | MR_ITS ---
EXAMINATION: MR brain/brain stem wo/w con DATE: 11/22/2020 10:25 INDICATION: Ataxia. Lung cancer. TECHNIQUE: Magnetic resonance imaging (MRI) of the brain and brainstem was performed without and with 20 mL MultiHance intravenous contrast. Sequences included sagittal and axial T1-weighted FSE, axial diffusion-weighted FS EPI, axial T2*-weighted GRE, axial T2-weighted FLAIR Propeller, and axial T2-we ighted Propeller. Postcontrast sequences included axial, sagittal, and coronal T1-weighted FSE. Appar ent diffusion coefficient (ADC) maps were created. COMPARISON: Brain MRI 06/01/2020 FINDINGS: There are scattered areas of nonspecific increased T2-weighted signal intensity in the cere bral white matter. There is no intracranial hemorrhage, acute infarction, or abnormal intracranial ma ss lesion. The ventricles are normal in size. There is a mucous retention cyst in left maxillary sinu s. The orbits are normal. The mastoid air cells are normal. IMPRESSION: 1. No evidence of metastatic disease. 2. Stable mild nonspecific cerebral white matter disease, which likely represents chronic small vesse l ischemic disease. Reviewed, dictated and finalized at location A. IMPRESSION: 1. No evidence of metastatic disease. 2. Stable mild nonspecific cerebral white matter disease, which likely represen ts chronic small vessel ischemic disease.
[2020-11-22 10:08] LABS: Estimated Glomerular Filt Rate > 60
== END 2020-11-22 08:57 | disposition home or self-care (01) ==
PROVIDERS: PCP Internal Medicine; Visit Provider Radiology Radiation Oncology
DX: C34.90 Malignant neoplasm of unspecified part of unspecified bronchus or lung (principal); R90.82 White matter disease, unspecified
CPT/HCPCS: 70553; 96523; A9577

== ENCOUNTER 2021-01-04 08:52 | Outpatient (CLI) | payer MEDICARE, MEDICAID, SELFPAY ==
[2021-01-04 09:19] LABS: Cholesterol 156 mg/dL (0-200); HDL Direct 45 mg/dL; Triglycerides 202 mg/dL (<150)
[2021-01-04 09:25] LABS: Hemoglobin A1C 7.9 % (<5.7)
[2021-01-04 09:30] LABS: LDL Cholesterol Direct 87 mg/dL
== END 2021-01-04 08:53 | disposition home or self-care (01) ==
LOC: ANHLAB 08:56
PROVIDERS: PCP Internal Medicine; Visit Provider Clinical Nurse Specialist
DX: E11.69 Type 2 diabetes mellitus with other specified complication (principal); I10 Essential (primary) hypertension
CPT/HCPCS: 36415; 80061; 83036

== ENCOUNTER 2021-03-09 12:31 | Observation (INO) | payer MEDICARE, MEDICAID, SELFPAY ==
--- NOTE | ~2021-03-09 | CT_ITS ---
EXAMINATION: CT chest abdomen pelvis w con EXAM DATE: 03/09/2021 14:21 INDICATION: hx of neoplasm jaundice abdominal distension. TECHNIQUE: Spiral CT of the chest, abdomen and pelvis was performed following intravenous injection o f 100 mL Omnipaque 350. Axial, coronal and sagittal images chest, abdomen and pelvis were reviewed. Coronal maximum intensity pixel images of chest reviewed. The dose-length product (DLP) for this ex amination was 1324.86 mGy-cm. The exposure was tailored according to patient size (auto mA exposure control), and iterative reconstruction (ASIR) was used as additional dose reduction technique. Kirk red to prior chest CT from 09/04/2020 FINDINGS: CHEST: Left upper lobe mass which was seen on CT from 04/11/2020 is no longer identified. Small amoun t of lingular, right middle lobe and right lower lobe scarring. Mild emphysema. There are no pleural or pericardial effusions. Tracheobronchial tree is patent. There is no mediastinal, hilar or axi llary lymphadenopathy. There is no pneumothorax. Heart normal in size. There is mild coronary a rterial calcification, arterial sclerosis. Sternotomy wires. There is a right-sided portacatheter. ABDOMEN PELVIS: Interval development of small to moderate amount of ascites, mostly located in the pe lvis. Interval development of diffuse liver metastases causing hepatomegaly. Bilateral adrenal nodul arity appears unchanged, did not demonstrate increased activity on PET/CT, consistent with adenomas. Spleen, pancreas are unremarkable. Gallbladder not identified, patient likely has had cholecystectomy. Portal and splenic veins are pat ent. Kidneys enhance symmetrically. There is no hydronephrosis. The prostate is unremarkable. Th e bladder is unremarkable. There is no retroperitoneal or pelvic lymphadenopathy. The appendix is normal. The stomach and small bowel are unremarkable. There is expected amount of c olonic stool. No free intraperitoneal gas. There are no osteoblastic or osteolytic lesions identi fied. IMPRESSION: 1. Development of extensive liver metastatic disease causing hepatomegaly. Small to moderate amount of ascites, not enough for therapeutic paracentesis. 2. Clear, mildly emphysematous lungs. Reviewed, dictated and finalized at location B. NCT PHILOSOPHY FACULTY IMPRESSION: 1. Development of extensive liver metastatic disease causing hepatomegaly. Sma ll to moderate amount of ascites, not enough for therapeutic paracentesis. 2. Clear, mildly emphysematous lungs.
--- NOTE | ~2021-03-09 | US_ITS ---
US venous doppler [facility] DATE: 03/11/2021 09:20 INDICATION: Bilateral lower extremity swelling TECHNIQUE: Real-time and color flow imaging and Doppler analysis of the veins of the lower extremitie s COMPARISON: None FINDINGS: The greater saphenous veins are patent. There is spontaneous and phasic flow and normal aug mentation and color flow signal and normal compression of the deep veins of both legs. IMPRESSION: Negative examination; no evidence of deep venous thrombosis of the legs Reviewed, dictated and finalized at [facility]. Reviewed, dictated and finalized at location A. TITATIVE DEVELOPER
--- NOTE | ~2021-03-09 | US_ITS ---
US paracentesis abd w/image DATE: 03/11/2021 09:18 INDICATION: Malignant ascites TECHNIQUE: The purpose of the procedure, technique endoscopic additional discussed with the patient. The patient indicated understanding and gave consent. Timeout procedure confirmed proper patient and procedure. A small pocket of fluid was identified in the right upper quadrant of the abdomen laterally. The over lying skin was prepared with sterile dated 9. Sterile drape was applied. 1% lidocaine local anestheti c was administered to the skin and underlying subcutaneous tissues. A single stick needle/catheter was introduced to approximately 2.5 cm depth into the peritoneal cavit y, yielding bloody peritoneal fluid. 200 cc of bloody fluid was drained into a Vacutainer bottle uneventfully. The patient was very cooperative and tolerated the procedure well, without complaint IMPRESSION: Uncomplicated percutaneous ultrasound-guided paracentesis procedure yielding 200 cc blood y fluid Reviewed, dictated and finalized at [facility]. Reviewed, dictated and finalized at location A. ENTARY INSTRUCTIONAL COACH IMPRESSION: Uncomplicated percutaneous ultrasound-guided paracentesis procedure yielding 200 cc bloody fluid
--- NOTE | ~2021-03-09 | CT_ITS ---
EXAMINATION: CT brain wo con EXAM DATE: 03/09/2021 14:20 INDICATION: Change in mental status. Lung cancer. TECHNIQUE: Spiral CT of the head was performed without contrast. Axial, coronal and sagittal images were reviewed. The dose-length product (DLP) for this examination was 681.00 mGy-cm. The exposure w as tailored according to patient size, and iterative reconstruction (ASIR) was used as additional dos e reduction technique. There is no prior study for comparison. FINDINGS: There is no acute intraparenchymal hemorrhage. No evidence of intraparenchymal brain mass lesion. No evidence of acute infarction. There is no mass effect or midline shift. The ventricles are normal in size. There are no extra-axial collections. Mild microangiopathy. There are no acute c alvarial fractures. The orbits are unremarkable. Soft tissue is unremarkable. Small to moderate lef t maxillary sinus mucous retention cyst. IMPRESSION: 1. No acute intracranial findings. 2. Mild microangiopathy. Reviewed, dictated and finalized at location B. STICS SUPPLY OFFICER
[2021-03-09 12:40] VITALS: BP 160/115; PULSE 110; RESP 18; TEMP 36.3; O2SAT 97
[2021-03-09 13:09] LABS: Basophils Absolute Auto 0.1 K/mm3 (0.0-0.1); Basophils Percent Auto 0.6 % (0.2-1.2); Hematocrit 45.9 % (42.0-52.0); Hemoglobin 14.5 g/dL (14.0-18.0); Immature Granulocyte Absolute 0.67 K/mm3 (0.00-0.031); Lymphocytes Absolute Auto 0.44 K/mm3 (0.9-3.2); Lymphocytes Percent Auto 2.7 % (18.3-44.2); Mean Corpuscular HGB Conc 31.6 g/dl (32-36); Mean Corpuscular Hemoglobin 30.5 pg (26-34); Mean Corpuscular Volume 96.6 fl (80-100); Mean Platelet Volume 11.3 fl (7.4-10.4); Monocytes Absolute Auto 0.9 K/mm3 (0.1-0.6); Monocytes Percent Auto 5.7 % (2.6-8.5); Neutrophils Absolute Auto 14.4 K/mm3 (1.3-6.7); Nucleated Red Blood Cells Perc 0.1 % (0.0-0.2); Platelet Count Result 197 k/mm3 (150-375); Red Blood Count 4.75 M/mm3 (4.6-6.20); Red Cell Distribution Width 16.5 % (11.5-14.5); White Blood Count 16.6 K/mm3 (4.5-10.0)
[2021-03-09 13:14] LABS: Add Urine Microscopic? YES; Appearance Urine Clear (Clear); Bacteria Urine Trace /hpf; Bilirubin Urine Negative (Negative); Blood Urine Negative (Negative); Color Urine Amber (Yellow); Glucose Urine UA 3+ mg/dL (Negative); Ketones Urine Negative (Negative); Leukocyte Esterase Ur 2+ LEU/UL (Negative); Mucus Urine Rare /lpf; Nitrate Urine Negative (Negative); Protein Urine Negative (Negative); Specific Grav Ur 1.023 (1.001-1.035); Squamous Epithelial Cell Urine Rare /hpf (Few); Urobilinogen Urine Negative mg/dL (<2.0); WBC Urine 21-30 /hpf
[2021-03-09 13:18] LABS: Ammonia 21 umol/L (9-30)
[2021-03-09 13:20] LABS: Albumin Level 3.4 g/dL (3.5-5.1); Alkaline Phosphatase 554 U/L (38-126); Anion Gap 17 mmol/L (8-16); Bilirubin,Total 6.5 mg/dL (0.2-1.3); Blood Urea Nitrogen 26 mg/dL (9-20); Calcium 9.3 mg/dL (8.4-10.2); Carbon Dioxide 24 mmol/L (22-30); Chloride 102 mmol/L (98-107); Estimated Glomerular Filt Rate > 60; Glucose 269 mg/dL (65-110); Lipase 198 U/L (23-300); Potassium 2.9 mmol/L (3.4-5.0); Sodium 143 mmol/L (137-145)
[2021-03-09 13:29] LABS: Alanine Aminotransferase 249 U/L (4-50); Aspartate Amino Transferase 141 U/L (17-59)
--- NOTE | 2021-03-09 14:59 | ED.GENADULT ---
HPI - General Adult General Chief complaint: Unspecified Stated complaint: weakness Time Seen by Provider: 03/09/21 13:29 History of Present Illness HPI narrative: Patient 60-year-old gentleman who presents the emergency department with chief complaint of changes in mental status and jaundice test. Patient has history of metastatic small cell cancer and has noticed that his abdomen has become progressively more distended and noticed that he started to become jaundiced. The patient also has had episodes of confusion has seen both his radiation oncologist who recommended doing CT scans and the patient was sent to his primary care physician who saw him today and decided the patient should be sent to the emergency department for evaluation. The patient reports he has been feeling kind of slow and kind of foggy and also has noticed that his abdomen has become progressively more significantly distended. His is also noticed that his eyes have turned yellow Related Data Home Medications Medication Instructions Recorded Confirmed albuterol sulfate 2.5 mg INHALATION PRN ml 02/02/19 02/22/21 blood sugar diagnostic #10 each 02/02/19 02/22/21 furosemide 40 mg tablet 40 mg PO DAILY tablet 02/02/19 02/22/21 metoprolol tartrate 25 mg tablet 12.5 mg PO DAILY tablet 02/02/19 02/22/21 potassium chloride 20 mEq 40 meq PO DAILY 02/02/19 02/22/21 tablet,extended release cetirizine 10 mg tablet 10 mg PO HS 09/28/19 02/22/21 melatonin 10 mg capsule 10 mg PO HS cap 09/28/19 02/22/21 rosuvastatin 5 mg tablet 10 mg PO HS tablet 03/30/20 02/22/21 aspirin 81 mg tablet,delayed 81 mg PO DAILY 03/09/21 release latanoprost 0.005 % eye drops 1 drp EACH EYE QPM 03/09/21 Allergies Allergy/AdvReac Type Severity Reaction Status Date / Time ezetimibe Allergy Mild Arm pain Verified 03/09/21 12:53 lovastatin Allergy Mild Arm pain Verified 03/09/21 12:53 metformin Allergy Mild Arm pain Verified 03/09/21 12:53 simvastatin Allergy Mild Arm Pain Verified 03/09/21 12:53 lisinopril Allergy Unknown Verified 03/09/21 12:53 Review of Systems Review of Systems: A 10 system review of systems was completed on the patient and is negative except for what is stated in the HPI. Nursing and ancillary documentation was reviewed. [facility] Past Medical History Medical History CAD (coronary artery disease) Chicken pox Chronic pain COPD (chronic obstructive pulmonary disease) COPD exacerbation Emphysema lung GERD (gastroesophageal reflux disease) Glaucoma Hyperlipidemia Hypertension Migraine Nicotine dependence, other tobacco product, uncomplicated Obesity Obesity Osteoarthritis Peripheral neuropathy Pneumonia Tobacco abuse Type 2 diabetes mellitus Upper respiratory tract infection Surgical History Surgical History H/O heart artery stent 12/2012 History of open heart surgery 4 bypass heart surgery 10/26/2018 Family History Family History Mother Family history of cardiovascular disease, Onset Age: 71 Sibling Carcinoma of colon H/O heart bypass surgery Father Family history of lung cancer Social History Social History Social History: Caffeine-daily coffee Smoking packs per day: 1.5 Smoking cigarettes per day: 30.0 Years smoked: 45 Smoking pack-years: 67.50 Smoking status: Former smoker Tobacco type: cigarettes Second hand tobacco smoke exposure: No Smoking end date: 06/14/19 Alcohol intake: never Substance use: never Substance use type: does not use Gender identity (if verbalized by the patient): Male Spiritual care concerns: No Exam Narrative: GENERAL: ill-appearing, well-nourished, and in no acute distress. Jaundice HEAD: Normocephalic
--- NOTE | 2021-03-09 17:43 | ADMGEN ---
This patient, Junaid Duarte, was admitted to Medical Room 349-01. Patient/family oriented to hospital policies and general routines including ID bracelet, bed and alarms, visiting hours, pain management, procedures, bathroom and other care routines, personal items, smoking policy, room service/diet, and visiting hours. Information on how to activate the Rapid Response Team has been discussed. Patient/Family are encouraged to report perceived risks to care and to ask questions if they do not understand what they are told or what they should do.
[2021-03-09 17:48] VITALS: BMI 31.6
[2021-03-09 19:56] VITALS: RESP 18; O2SAT 97
[2021-03-09 20:59] VITALS: BP 156/88; PULSE 97; RESP 20; TEMP 36.6; O2SAT 96
[2021-03-09 21:29] VITALS: PULSE 87; RESP 17; O2SAT 98
[2021-03-09 21:50] LABS: Glucose Point of Care 197 mg/dl (65-105)
--- NOTE | 2021-03-09 22:08 | PM.IMHP ---
H&P: HPI History of Present Illness Date/Time: 03/09/21 22:08 Chief Complaint: Abdominal distension Narrative: This is a 60-year-old male with past medical history significant for non-small cell lung cancer metastatic. Patient comes for evaluation of abdominal distension came from on his doctor's office. Patient had concluded his chemotherapy treatment along with radiation to brain mets. Patient also noticed bilateral lower extremity swelling, shortness of breath, and bloating his abdomen. Patient denies any fevers, rigors, chills ,nausea, vomiting ,diarrhea, no cough, no sputum production. Preliminary workup was significant for CT of abdomen and pelvis with numerous metastatic lesions to the liver and small amount of ascites. Patient is being admitted for further evaluation management and treatment. Review of Systems Review of Systems: Abdominal distension, bilateral lower extremity edema, shortness of breath. Constitutional: Constitutional: Denies chills, Denies fatigue, Denies fever(s), Denies lethargy, Denies malaise, Denies night sweats, Denies poor appetite and Denies weakness Eyes: Eyes: Denies change in vision ENT: Denies dysphagia, Denies nasal congestion, Denies nasal discharge, Denies nasal obstruction and Denies odynophagia Cardiovascular: Cardiovascular: Denies claudication, Reports leg edema, Denies radiating jaw, neck or arm pain, Denies palpitations, Reports dyspnea, Reports dyspnea on exertion and Reports orthopnea Respiratory: Respiratory: Denies cough, Denies excessive phlegm production, Denies dyspnea and Denies wheezing Gastrointestinal: Gastrointestinal: Denies abdominal pain, Reports bloating, Denies dyspepsia, Denies heartburn, Denies nausea and Denies vomiting Genitourinary: Genitourinary: Denies dysuria Musculoskeletal: Musculoskeletal: Denies arthralgias and Denies joint swelling Integumentary/Breasts: Skin/Breast: Denies rash Neurologic: Denies focal weakness and Denies Sensory deficit (Neuro) Psychiatric: Psychiatric: Reports no additional psychiatric complaints and Reports as per HPI Endocrine: Endocrine: Denies cold intolerance, Denies heat intolerance, Denies polyphagia, Denies polyuria and Denies palpitations Hematologic/Lymphatic: Hematologic/Lymphatic: Reports no additional hematologic/lymphatic complaints and Reports as per HPI Allergic/Immunologic: Allergic/Immunologic: Reports no additional allergic/immunologic complaints and Reports as per HPI [facility] Past Medical History Medical History CAD (coronary artery disease) Chicken pox Chronic pain COPD (chronic obstructive pulmonary disease) COPD exacerbation Emphysema lung GERD (gastroesophageal reflux disease) Glaucoma Hyperlipidemia Hypertension Migraine Nicotine dependence, other tobacco product, uncomplicated Obesity Obesity Osteoarthritis Peripheral neuropathy Pneumonia Tobacco abuse Type 2 diabetes mellitus Upper respiratory tract infection Surgical History Surgical History H/O heart artery stent 12/2012 History of open heart surgery 4 bypass heart surgery 10/26/2018 Family History Family History Mother Family history of cardiovascular disease, Onset Age: 71 Sibling Carcinoma of colon H/O heart bypass surgery Father Family history of lung cancer Social History Social History Social History: Caffeine-daily coffee Smoking packs per day: 1.5 Smoking cigarettes per day: 30.0 Years smoked: 45 Smoking pack-years: 67.50 Smoking status: Former smoker Second hand tobacco smoke exposure: No Alcohol intake: never Substance use: never Substance use type: does not use Gender identity (if verbalized by the patient): Male Spiritual care c
--- NOTE | 2021-03-10 01:40 | PCRCNOTE ---
RT asked Pt. about CPAP at home pt. states he has one but does not use often and refused in house CPAP
[2021-03-10] MEDS: MORPHINE SULFATE (*CRX) 4 MG/ML INJ IV PUSH ×3 (03:17→20:32)
[2021-03-10 04:12] VITALS: BP 159/86; PULSE 89; RESP 18; TEMP 36.1; O2SAT 99
[2021-03-10] MEDS: FLUTICASONE/SALMETEROL 115-21 MCG INHALER 1 PUFF 2 PUFF INHALATION ×2 (07:59→19:59)
[2021-03-10 08:00] VITALS: O2SAT 97
[2021-03-10 08:43] LABS: Hematocrit 43.4 % (42.0-52.0); Hemoglobin 13.9 g/dL (14.0-18.0); Mean Corpuscular Hemoglobin 30.7 pg (26-34); Mean Corpuscular Volume 95.8 fl (80-100); Mean Platelet Volume 11.1 fl (7.4-10.4); Platelet Count Result 155 k/mm3 (150-375); Red Blood Count 4.53 M/mm3 (4.6-6.20); Red Cell Distribution Width 17.2 % (11.5-14.5); White Blood Count 14.5 K/mm3 (4.5-10.0)
[2021-03-10] MEDS: ASPIRIN 81 MG ENTERIC TABLET PO (09:15)
[2021-03-10] MEDS: buPROPion HCL SR (12 HR) 150 MG TAB PO ×2 (09:15→17:39)
[2021-03-10] MEDS: LORATADINE 10 MG TABLET PO (09:15)
[2021-03-10] MEDS: BRIMONIDINE TARTRATE 0.2% OP SOLN 5 ML BTL 1 DROP EACH EYE (09:15)
[2021-03-10] MEDS: POTASSIUM CHLORIDE 20 MEQ TABLET.ER 40 MEQ PO (09:15)
[2021-03-10] MEDS: EMPAGLIFLOZIN 25 MG TABLET PO (09:15)
[2021-03-10] MEDS: LOSARTAN POTASSIUM 100 MG TABLET PO (09:15)
[2021-03-10] MEDS: GABAPENTIN 100 MG CAPSULE PO ×3 (09:15→17:40)
[2021-03-10] MEDS: PANTOPRAZOLE 40 MG TABLET PO ×2 (09:15→17:39)
[2021-03-10] MEDS: FUROSEMIDE 40 MG TABLET PO (09:15)
[2021-03-10] MEDS: FLUTICASONE PROPIONATE 0.05% NA SPR 16 GM BTL (*BKC) 2 SPRAY NASAL (09:16)
[2021-03-10 14:08] LABS: Alanine Aminotransferase 264 U/L (4-50); Albumin Level 3.2 g/dL (3.5-5.1); Alkaline Phosphatase 535 U/L (38-126); Anion Gap 10 mmol/L (8-16); Aspartate Amino Transferase 165 U/L (17-59); Bilirubin,Total 6.8 mg/dL (0.2-1.3); Blood Urea Nitrogen 33 mg/dL (9-20); Calcium 9.2 mg/dL (8.4-10.2); Carbon Dioxide 28 mmol/L (22-30); Chloride 102 mmol/L (98-107); Estimated CRCL calculation 76 ml/min; Estimated Glomerular Filt Rate > 60; Glucose 118 mg/dL (65-110); Potassium 3.4 mmol/L (3.4-5.0); Sodium 140 mmol/L (137-145)
--- NOTE | 2021-03-10 14:15 | PM.IMPN ---
Progress Note: A&P Assessment and Plan (1) Cancer, metastatic to liver: Code(s): C78.7 - Secondary malignant neoplasm of liver and intrahepatic bile duct Status: Acute Assessment and Plan: multiple metastatic lesions in the liver with ascites likely secondary to patient's known small cell lung cancer after coags done obtain therapeutic and diagnostic paracentesis discharged home 03/11 after procedure if stable 03/10 discussed at length with patient and his girlfriend Magaly they will follow-up with oncology and consult with hospice to determine what course of action we will follow next (2) Chronic obstructive pulmonary disease, unspecified: Qualifiers: COPD type: unspecified COPD Qualified Code(s): J44.9 - Chronic obstructive pulmonary disease, unspecified Code(s): J44.9 - Chronic obstructive pulmonary disease, unspecified Status: Acute Assessment and Plan: Continue home meds Not actively wheezing (3) Malignant neoplasm of unspecified part of unspecified bronchus or lung: Code(s): C34.90 - Malignant neoplasm of unspecified part of unspecified bronchus or lung Status: Acute Assessment and Plan: Patient is status post chemotherapy and radiation 4 small cell lung cancer (4) Type 2 diabetes mellitus: Qualifiers: Diabetes mellitus longterm insulin use: unspecified terminal block assembler insulin use status Diabetes mellitus complication status: with other specified complication Qualified Code(s): E11.69 - Type 2 diabetes mellitus with other specified complication Code(s): E11.9 - Type 2 diabetes mellitus without complications Status: Acute Assessment and Plan: blood sugar was elevated at admission over 300 improving 03/10 (5) Peripheral neuropathy: Qualifiers: Peripheral neuropathy type: polyneuropathy, unspecified Qualified Code(s): G62.9 - Polyneuropathy, unspecified Code(s): G62.9 - Polyneuropathy, unspecified Status: Acute Assessment and Plan: Unchanged (6) CAD (coronary artery disease): Qualifiers: Coronary Disease-Associated Artery/Lesion type: [place] artery [place] vs. transplanted heart: [place] heart Associated angina: without angina Qualified Code(s): I25.10 - Atherosclerotic heart disease of [place] coronary artery without angina pectoris Code(s): I25.10 - Atherosclerotic heart disease of [place] coronary artery without angina pectoris Status: Acute Assessment and Plan: Continue home meds Chest pain-free (7) Tobacco abuse: Code(s): Z72.0 - Tobacco use Status: Acute Assessment and Plan: Nicotine patch as needed Subjective Date/time seen: 03/10/21 14:15 Interval history: 60-year-old gentleman who recently completed chemo and radiation therapy for small cell lung cancer presented for the emergency department with abdominal and ankle swelling and mild discomfort. 03/10 visit. Admitted to only occasional fleeting shooting pains. Good appetite. No change in ankle and leg swelling. No shortness of breath. No dizziness or lightheadedness. Denied GI or changes. Denied chest pain. States that he has been up and around and active and eating well at home. He only presented the emergency department because the abdominal swelling in the intermittent discomfort associated with it. Review of Systems Review of Systems: All systems reviewed & are unremarkable except as noted in HPI and below Exam Narrative: HEENT: PERRL, sclerae nonicteric, pharyngeal mucosa pink and intact NECK: No JVD, adenopathy, or thyromegaly CHEST: Clear to auscultation. Normal effort. HEART: NL S1/S2, regular, no murmur ABDOMEN: BS+, Protuberant but soft, nontender, no mass, no bruits EXTREMITIES: 1+ ankle and leg edema NEUROLOGIC: CN intact and symmetric to inspection. MUSCULOSKELETAL: Tone and strength symmetric. PSYCH: Alert. Oriented to person, place, and ti
[2021-03-10 15:03] LABS: Partial Thromboplastin Time 20.7 SECONDS (22.3-36.8)
[2021-03-10 16:52] LABS: Glucose Point of Care 251 mg/dl (65-105)
[2021-03-10] MEDS: METOPROLOL SUCCINATE EXT REL 12.5 MG TABCR PO (17:39)
[2021-03-10] MEDS: LATANOPROST 0.005% OP SOLN 2.5 ML BTL 1 DROP EACH EYE (17:40)
[2021-03-10 20:00] VITALS: PULSE 89; RESP 18; O2SAT 95
[2021-03-10 20:01] VITALS: PULSE 89; O2SAT 95
[2021-03-10] MEDS: MELATONIN 5 MG TABLET 10 MG PO (20:33)
[2021-03-10] MEDS: ROSUVASTATIN 10 MG TABLET PO (20:33)
[2021-03-10 22:00] VITALS: BP 157/82; PULSE 92; RESP 18; TEMP 36; O2SAT 98
[2021-03-11 07:08] LABS: Hematocrit 42.6 % (42.0-52.0); Hemoglobin 13.4 g/dL (14.0-18.0); Mean Corpuscular HGB Conc 31.5 g/dl (32-36); Mean Corpuscular Volume 98.6 fl (80-100); Mean Platelet Volume 11.7 fl (7.4-10.4); Platelet Count Result 159 k/mm3 (150-375); Red Blood Count 4.32 M/mm3 (4.6-6.20); Red Cell Distribution Width 17.6 % (11.5-14.5); White Blood Count 12.8 K/mm3 (4.5-10.0)
[2021-03-11 07:18] LABS: Prothrombin Time 12.7 Seconds (11.1-14.7)
[2021-03-11 07:19] LABS: Partial Thromboplastin Time 21.5 SECONDS (22.3-36.8)
[2021-03-11 07:20] LABS: Alanine Aminotransferase 261 U/L (4-50); Albumin Level 3.1 g/dL (3.5-5.1); Alkaline Phosphatase 494 U/L (38-126); Anion Gap 17 mmol/L (8-16); Aspartate Amino Transferase 183 U/L (17-59); Bilirubin,Total 7.6 mg/dL (0.2-1.3); Blood Urea Nitrogen 43 mg/dL (9-20); Calcium 9.1 mg/dL (8.4-10.2); Carbon Dioxide 26 mmol/L (22-30); Chloride 98 mmol/L (98-107); Estimated CRCL calculation 50 ml/min; Estimated Glomerular Filt Rate 41; Glucose 163 mg/dL (65-110); Potassium 3.6 mmol/L (3.4-5.0); Sodium 141 mmol/L (137-145)
[2021-03-11 08:03] VITALS: O2SAT 96
[2021-03-11] MEDS: FLUTICASONE/SALMETEROL 115-21 MCG INHALER 1 PUFF 2 PUFF INHALATION (08:07)
[2021-03-11 08:09] VITALS: O2SAT 96
[2021-03-11] MEDS: ASPIRIN 81 MG ENTERIC TABLET PO (09:37)
[2021-03-11] MEDS: GABAPENTIN 100 MG CAPSULE PO ×2 (09:37→12:52)
[2021-03-11] MEDS: LOSARTAN POTASSIUM 100 MG TABLET PO (09:37)
[2021-03-11] MEDS: LORATADINE 10 MG TABLET PO (09:37)
[2021-03-11 09:38] VITALS: PULSE 78
[2021-03-11] MEDS: buPROPion HCL SR (12 HR) 150 MG TAB PO (09:38)
[2021-03-11] MEDS: EMPAGLIFLOZIN 25 MG TABLET PO (09:38)
[2021-03-11] MEDS: PANTOPRAZOLE 40 MG TABLET PO (09:38)
[2021-03-11] MEDS: FLUTICASONE PROPIONATE 0.05% NA SPR 16 GM BTL (*BKC) 2 SPRAY NASAL (09:38)
[2021-03-11] MEDS: METOPROLOL SUCCINATE EXT REL 12.5 MG TABCR PO (09:38)
[2021-03-11] MEDS: BRIMONIDINE TARTRATE 0.2% OP SOLN 5 ML BTL 1 DROP EACH EYE (09:39)
[2021-03-11] MEDS: MORPHINE SULFATE (*CRX) 4 MG/ML INJ IV PUSH (09:43)
[2021-03-11 11:18] LABS: Source Peritoneal Fluid Peritoneal Fluid
[2021-03-11 11:19] LABS: Appearance Peritoneal Fluid Bloody (Clear); Color Peritoneal Fluid Red (Colorless)
[2021-03-11 11:20] LABS: Lymphocytes Peritoneal Fluid 8 %; Neutrophils Peritoneal Fluid 92 % (0-25)
--- NOTE | 2021-03-11 12:38 | PM.DS ---
DS: Admitting Diagnosis Discharge Date Patient was seen and examined March 11, 2021 Admitting Diagnosis Metastatic small cell lung cancer DS: Discharge Diagnosis Discharge Diagnosis (1) Cancer, metastatic to liver: Code(s): C78.7 - Secondary malignant neoplasm of liver and intrahepatic bile duct Status: Acute Assessment and Plan: multiple metastatic lesions in the liver with ascites likely secondary to patient's known small cell lung cancer Coags were within normal limits 03/11 diagnostic ultrasound-guided paracentesis One hundred twenty-three creatinine increased to 1.7 repeat and afternoon 1.5 with patient asymptomatic discharged home 03/11 after procedure 03/10 discussed at length with patient and his girlfriend Magaly they will follow-up with oncology to determine what course of action we will follow next (2) Chronic obstructive pulmonary disease, unspecified: Qualifiers: COPD type: unspecified COPD Qualified Code(s): J44.9 - Chronic obstructive pulmonary disease, unspecified Code(s): J44.9 - Chronic obstructive pulmonary disease, unspecified Status: Acute Assessment and Plan: Continue home meds Not actively wheezing (3) Malignant neoplasm of unspecified part of unspecified bronchus or lung: Code(s): C34.90 - Malignant neoplasm of unspecified part of unspecified bronchus or lung Status: Acute Assessment and Plan: Patient is status post chemotherapy and radiation for small cell lung cancer (4) Type 2 diabetes mellitus: Qualifiers: 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 insulin 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: unspecified respiratory care instructor insulin use status Diabetes mellitus complication status: with other specified complication Qualified Code(s): E11.69 - Type 2 diabetes mellitus with other specified complication Code(s): E11.9 - Type 2 diabetes mellitus without complications Status: Acute Assessment and Plan: blood sugar was elevated at admission over 300 improving 03/10 03/08 3-37 prior to discharge (5) Peripheral neuropathy: Qualifiers: Peripheral neuropathy type: polyneuropathy, unspecified Qualified Code(s): G62.9 - Polyneuropathy, unspecified Code(s): G62.9 - Polyneuropathy, unspecified Status: Acute Assessment and Plan: Unchanged (6) CAD (coronary artery disease): Qualifiers: Coronary Disease-Associated Artery/Lesion type: [place] artery [place] vs. transplanted heart: [place] heart Associated angina: without angina Qualified Code(s): I25.10 - Atherosclerotic heart disease of [place] coronary artery without angina pectoris Code(s): I25.10 - Atherosclerotic heart disease of [place] coronary artery without angina pectoris Status: Acute Assessment and Plan: Continue home meds Chest pain-free (7) Tobacco abuse: Code(s): Z72.0 - Tobacco use Status: Acute Assessment and Plan: Nicotine patch as needed (8) UTI (urinary tract infection), bacterial: Code(s): N39.0 - Urinary tract infection, site not specified; A49.9 - Bacterial infection, unspecified Status: Acute Assessment and Plan: Culture grew group B strep Received 1 dose of ceftriaxone 03/11 Discharged on ampicillin 500 mg 4 times daily for 10 days DS: Summary Hospital Course Reason for hospitalization: Abdominal discomfort and bloating Hospital Course: Admitted for abdominal discomfort and bloating with CT showing ascites and multiple liver metastases the enzymes were elevated with transaminases showing AST 161 ALT 283 and bilirubin 7.6 by discharge. Creatinine increased to 1.7 on day of discharge and was 1.5 later in the day. Diuretics were held. Losartan was continued pending follow-up creatinine as outpatient. He did have ultrasound-guided paracentesis on day of discharge and 200 mL of fluid was removed. The fluid was bloody. Peritoneal nucleated cells were too numerous to count as were the red bloo
[2021-03-11 12:55] LABS: Anion Gap 16 mmol/L (8-16); Blood Urea Nitrogen 46 mg/dL (9-20); Calcium 8.8 mg/dL (8.4-10.2); Carbon Dioxide 24 mmol/L (22-30); Chloride 96 mmol/L (98-107); Estimated CRCL calculation 57 ml/min; Estimated Glomerular Filt Rate 48; Glucose 237 mg/dL (65-110); Potassium 3.6 mmol/L (3.4-5.0); Sodium 136 mmol/L (137-145)
[2021-03-13 21:21] LABS: Glucose Peritoneal Fluid 118 mg/dL
[2021-03-18 22:48] LABS: Amylase Peritoneal Fluid 10 U/L
== END 2021-03-11 13:45 | disposition home or self-care (01) ==
LOC: ANHED 15:30 → ANH3MED 03-11 13:38
PROVIDERS: Admitting Provider Family Medicine; Emergency Provider Emergency Medicine; PCP Internal Medicine; Visit Provider Internal Medicine
DX: C78.7 Secondary malignant neoplasm of liver and intrahepatic bile duct (principal); C79.31 Secondary malignant neoplasm of brain; C34.90 Malignant neoplasm of unspecified part of unspecified bronchus or lung; R17 Unspecified jaundice; R18.8 Other ascites; N39.0 Urinary tract infection, site not specified; B95.1 Streptococcus, group B, as the cause of diseases classified elsewhere; R41.82 Altered mental status, unspecified; R53.1 Weakness; M79.89 Other specified soft tissue disorders; I25.10 Atherosclerotic heart disease of native coronary artery without angina pectoris; J44.9 Chronic obstructive pulmonary disease, unspecified; K21.9 Gastro-esophageal reflux disease without esophagitis; H40.9 Unspecified glaucoma; E78.5 Hyperlipidemia, unspecified; I10 Essential (primary) hypertension; E11.42 Type 2 diabetes mellitus with diabetic polyneuropathy; M19.90 Unspecified osteoarthritis, unspecified site; E66.9 Obesity, unspecified; Z68.31 Body mass index [BMI] 31.0-31.9, adult; Z79.51 Long term (current) use of inhaled steroids; Z79.82 Long term (current) use of aspirin; Z79.84 Long term (current) use of oral hypoglycemic drugs; Z95.1 Presence of aortocoronary bypass graft; Z95.5 Presence of coronary angioplasty implant and graft; Z87.891 Personal history of nicotine dependence; Z92.21 Personal history of antineoplastic chemotherapy; Z92.3 Personal history of irradiation
CPT/HCPCS: 36415; 49083; 70450; 71260; 74177; 80048; 80053; 81001; 82042; 82140; 82150; 82945; 82948; 83615; 83690; 84157; 85025; 85027; 85610; 85730; 87070; 87075; 87077; 87086; 87088; 87205; 88104; 88108; 88305; 89051; 93970; 94640; 96374; 96375; 96376; 99285; A9270; G0378; J0696; J2270; Q9967